=== PATIENT | male | born 1985 | race American Indian/Alaskan Native ===

== ENCOUNTER 2022-03-20 20:50 | Emergency (ER) | payer SELFPAY ==
[~2022-03-20] VITALS: Ht 147.3 cm; Wt 102.5 kg
[2022-03-20] MEDS ORDERED: CHLORDIAZEPOXID25 MG PO ×3 (21:27→22:47)
[2022-03-20 21:56] VITALS: BP 132/71
== END 2022-03-20 21:56 | disposition home or self-care (01) ==
LOC: FSED 21:08
DX: F10.20 Alcohol dependence, uncomplicated (principal); I10 Essential (primary) hypertension; J45.909 Unspecified asthma, uncomplicated
CPT/HCPCS: 99282

== ENCOUNTER 2022-12-03 12:52 | Emergency (ER) | payer OTHER, MEDICARE ==
[~2022-12-03] VITALS: Ht 177.8 cm; Wt 100.2 kg
[~2022-12-03 12:52] MED LIST: AMOX TR-K CLV1 EAC2 PO; CHLORDIAZEPOXID25 MG PO; GUAIFEN-CODEINE5 ML PO; PREDNISONE20 MG PO; PROMETHAZINE-D118 ML PO
[2022-12-03] MEDS ORDERED: METHOCARBAMOL 500 MG TAB PO ONE (13:45)
[2022-12-03] MEDS ORDERED: KETOROLAC TROMETHAMINE 60 MG/2 ML VIAL IM ONE (13:45)
[2022-12-03] MEDS ORDERED: CYCLOBENZAPRINE HCL 10 MG TAB ONE (13:49)
[2022-12-03] MEDS ORDERED: KETOROLAC TROMETHAMINE 60 MG/2 ML VIAL ONE (13:50)
[2022-12-03] MEDS ORDERED: CYCLOBENZAPRINE HCL 10 MG TAB PO ONE (14:00)
[2022-12-03] MEDS ORDERED: NAPROSYN500 MG PO (14:37)
[2022-12-03] MEDS ORDERED: METHOCARBAMOL500 MG PO (14:37)
[2022-12-03 14:53] VITALS: O2SAT 100
== END 2022-12-03 14:53 | disposition home or self-care (01) ==
LOC: FSED 12:57
DX: M25.611 Stiffness of right shoulder, not elsewhere classified (principal); M62.838 Other muscle spasm; G58.8 Other specified mononeuropathies; S46.811A Strain of other muscles, fascia and tendons at shoulder and upper arm level, right arm, initial encounter; Y93.84 Activity, sleeping; Y92.89 Other specified places as the place of occurrence of the external cause; I10 Essential (primary) hypertension; K76.9 Liver disease, unspecified; J45.909 Unspecified asthma, uncomplicated
CPT/HCPCS: 71045; 73030; 96372; 99283; J1885